=== PATIENT | male | born 1960 | race African-American/Black ===

== ENCOUNTER 2017-02-27 15:06 | Emergency (ER) | payer MEDICARE, MEDICAID ==
[~2017-02-27] VITALS: Ht 180.3 cm; Wt 113.4 kg
[2017-02-27] MEDS ORDERED: LORT5TAB PO ×2 (15:13→17:48)
[2017-02-27 18:05] VITALS: BP 131/71
== END 2017-02-27 18:06 | disposition home or self-care (01) ==
LOC: M ED 16:14
DX: M25.561 Pain in right knee (principal); Z76.0 Encounter for issue of repeat prescription; Z79.899 Other long term (current) drug therapy

== ENCOUNTER 2018-09-08 09:08 | Emergency (ER) | payer MEDICARE, MEDICAID ==
[2018-09-08 10:41] LABS: URIC ACID 7.6 MG/DL (3.5-7.2)
[2018-09-08 10:42] LABS: ANION GAP 6 MEQ/L (8-16); BLOOD UREA NITROGEN 14 MG/DL (7-18); CALCIUM LEVEL 9.1 MG/DL (8.5-10.1); CARBON DIOXIDE LEVEL 29 MEQ/L (21-32); CHLORIDE LEVEL 106 MEQ/L (98-107); CREATININE FOR GFR 1.15 MG/DL (0.70-1.30); GLOMERULAR FILTRATION RATE > 60.0 (>56); GLUCOSE, FASTING 94 MG/DL (70-100); POTASSIUM SERUM 4.3 MEQ/L (3.5-5.1); SODIUM LEVEL 141 MEQ/L (136-145)
== END 2018-09-08 11:08 | disposition home or self-care (01) ==
LOC: M ED 09:08
DX: M10.9 Gout, unspecified (principal); B35.3 Tinea pedis; R60.0 Localized edema; Z96.641 Presence of right artificial hip joint
CPT/HCPCS: 84550

== ENCOUNTER → 2019-12-17 | Outpatient (CLI) | payer OTHER ==
[~2019-12-17] MED LIST: INDO50CA91 PO; LORT5TAB PO
--- NOTE | 2019-12-18 14:46 | ECHO ---
DATE OF PROCEDURE: 12/17/2019 HEIGHT: 71 inches. WEIGHT: 245 pounds. BODY SURFACE AREA: 2.3 meters squared REFERRING PHYSICIAN: Dr. Ginger Plunkett INDICATION: Hypertension. MEASUREMENTS: 2D Measurements: RV - 4.1 cm LV - 5.3 cm Septum -1.1 cm Posterior wall - 1.1 cm Aortic root - 3.5 cm LA - 3.4 cm LVEF - 55% Doppler Measurements: AV - 1.08 meters per second LVOT - 0.91 meters per second LVOT diameter - 2.3 cm MV-E - 55, A - 66, E/A ratio 0.8 Early mitral deceleration time 285 milliseconds E prime medial - 6, A prime medial - 8, E prime lateral - 11.5 Average E/E prime ratio 6.3/PCWP 10 mmHg PV - 0.8 meters per second Pulmonary artery acceleration time - 120 milliseconds PASP - 29 mmHg IVC - 1.5 small see small. COMMENTS: Normal sinus rhythm/sinus bradycardia without intraventricular conduction disturbance. Technically challenging study in light of the patient's body habitus but diagnostically useful information was still obtained. M-mode and two-dimensional echocardiography was performed with pulsed, continuous wave, color flow and tissue Doppler studies. Normal left ventricular size and wall thickness and wall motion. Normal left atrial size with grade 1 LV diastolic dysfunction but normal estimated mean left atrial pressure (findings not outside normal limits for his age). Normal right heart chamber sizes and motion and estimated pulmonary arterial pressure. Normal IVC size and collapse against an elevated central venous pressure. Normal appearing and functioning aortic valve. Normal aortic root and ascending aortic diameters. Normal appearing and functioning mitral valvular apparatus. Normal tricuspid valve with a very mild insufficiency (physiologic). No apparent intracardiac mass or pericardial effusion.
== END ==
LOC: M CARPUL 09:43
PROVIDERS: ATTEND Internal Medicine
DX: I10 Essential (primary) hypertension (principal)

== ENCOUNTER → 2020-03-09 | Outpatient (CLI) | payer MEDICARE, OTHER | LOC: M LABSMTC 10:13 | PROVIDERS: ATTEND Family Medicine | DX: Z11.59 Encounter for screening for other viral diseases (principal); Z20.828 Contact with and (suspected) exposure to other viral communicable diseases ==

== ENCOUNTER 2022-05-29 10:56 | Emergency (ER) | payer MEDICARE, OTHER ==
[2022-05-29 15:36] VITALS: BP 198/100
== END 2022-05-29 15:40 | disposition home or self-care (01) ==
LOC: M ED 10:56 → EDBD 10:56 → M ED 15:40
DX: S20.211A Contusion of right front wall of thorax, initial encounter (principal); W18.39XA Other fall on same level, initial encounter; Y92.018 Other place in single-family (private) house as the place of occurrence of the external cause; I10 Essential (primary) hypertension; M21.371 Foot drop, right foot

== ENCOUNTER → 2022-10-14 | Outpatient (CLI) | payer OTHER ==
[~2022-10-14] MED LIST changes: +IBUP200T46 PO
== END ==
LOC: M PLAIMG 08:27
PROVIDERS: ATTEND Internal Medicine
DX: R53.1 Weakness (principal); R29.6 Repeated falls; R90.82 White matter disease, unspecified; M25.78 Osteophyte, vertebrae

== ENCOUNTER 2022-10-16 15:22 | Emergency (ER) | payer MEDICAID, MEDICARE, OTHER ==
[~2022-10-16] VITALS: Ht 180.3 cm; Wt 113.6 kg
[~2022-10-16 15:22] MED LIST changes: -IBUP200T46 PO
[2022-10-16] MEDS ORDERED: ISOVUE-370 76% 100ML VIAL As Ordered ONE (15:50)
[2022-10-16 16:11] LABS: BASO % 0.2 % (0.0-1.0); EOS % 0.7 % (0.0-3.0); HEMATOCRIT 41.9 % (42.0-52.0); LYMPH # 0.9 10^3/uL (1.5-5.0); LYMPH % 15.6 % (24.0-44.0); MEAN CORPUSCULAR HEMOGLOBIN 29.1 pg (27.0-33.0); MEAN CORPUSCULAR HGB CONC 33.4 g/dl (32.0-36.5); MEAN CORPUSCULAR VOLUME 87.1 fl (80.0-96.0); MONO # 0.4 10^3/uL (0.0-0.8); NEUTROPHILS # 4.5 10^3/uL (1.5-8.5); PLATELET COUNT, AUTOMATED 187 10^3/uL (150-450); RED BLOOD COUNT 4.81 10^6/uL (4.30-6.10)
[2022-10-16] MEDS ORDERED: PROHANCE 279.3MG/ML 5ML VIAL As Ordered ONE (19:05)
[2022-10-16] MEDS ORDERED: PROHANCE 279.3MG/ML 15ML VIAL As Ordered ONE (19:05)
[2022-10-16] MEDS ORDERED: HOME MED LIST COMPLETE! XX SCH (20:25)
[2022-10-16] MEDS ORDERED: IBUP200T46 PO (20:25)
[2022-10-16 20:42] LABS: RSV AMPLIFICATION NEGATIVE (NEGATIVE)
[2022-10-16] MEDS ORDERED: ceFAZolin SOD 2 GM in IV 1 EA IV ONE (21:35)
[2022-10-16] MEDS ORDERED: MORPHINE 4 MG/ML 1ML VIAL IV ONE (23:30)
[2022-10-16 23:47] VITALS: BP 159/90
== END 2022-10-16 23:49 | disposition short-term general hospital (02) ==
LOC: M ED 15:22 → EDBD 15:22 → M ED 23:49
DX: M46.26 Osteomyelitis of vertebra, lumbar region (principal); I10 Essential (primary) hypertension; W01.0XXA Fall on same level from slipping, tripping and stumbling without subsequent striking against object, initial encounter; Z96.641 Presence of right artificial hip joint; Z79.1 Long term (current) use of non-steroidal anti-inflammatories (NSAID)
CPT/HCPCS: 36415; 70450; 71260; 72125; 72128; 72131; 72158; 74177; 80047; 84484; 85025; 87040; 87631; 93005; 93041; 94760; 96365; 96375; 99285; A9576; J0690; J2270; Q9967

== ENCOUNTER → 2022-12-16 | Outpatient (CLI) | payer OTHER ==
[~2022-12-16] MED LIST changes: +IBUP200T46 PO
== END ==
LOC: M RAD 07:56
PROVIDERS: ATTEND Internal Medicine
DX: M48.07 Spinal stenosis, lumbosacral region (principal); R29.6 Repeated falls

== ENCOUNTER 2023-02-19 07:21 | Day surgery (SDC) | payer OTHER ==
[~2023-02-19] VITALS: Ht 177.8 cm; Wt 101.1 kg
[~2023-02-19 07:21] MED LIST changes: +FINA5TAB2 PO; +LIDOCAINE 2% 100MG/5ML SDV (FOR ANES.) As Ordered ONE; +METO200T28 PO; +NS 1,000 ML IV ONE; +fentaNYL 100 MCG/2 ML INJECTION As Ordered ONE; +propofoL 500 MG/50 ML VIAL As Ordered ONE
[2023-02-19 09:20] VITALS: BP 186/79
== END 2023-02-19 09:40 | disposition home or self-care (01) ==
LOC: M OPP 07:21
PROVIDERS: ATTEND Surgery
DX: Z12.11 Encounter for screening for malignant neoplasm of colon (principal); Z86.010 Personal history of colon polyps; D12.0 Benign neoplasm of cecum; K57.30 Diverticulosis of large intestine without perforation or abscess without bleeding; K29.70 Gastritis, unspecified, without bleeding; K30 Functional dyspepsia; I10 Essential (primary) hypertension; N40.0 Benign prostatic hyperplasia without lower urinary tract symptoms; Z79.1 Long term (current) use of non-steroidal anti-inflammatories (NSAID); Z79.899 Other long term (current) drug therapy; Z86.16 Personal history of COVID-19; Z80.1 Family history of malignant neoplasm of trachea, bronchus and lung
CPT/HCPCS: 43239; 45380; 88305; J3010

== ENCOUNTER → 2023-08-27 | Outpatient (CLI) | payer MEDICAID, MEDICARE, OTHER ==
[~2023-08-27] MED LIST changes: +ACET1TAB55 PO; +AMLO1TAB24 PO; -LIDOCAINE 2% 100MG/5ML SDV (FOR ANES.) As Ordered ONE; +MAGN400T2 PO; +MIRA1POW3 PO; -NS 1,000 ML IV ONE; +PERCOCET PO; +SENN-52 PO; -fentaNYL 100 MCG/2 ML INJECTION As Ordered ONE; -propofoL 500 MG/50 ML VIAL As Ordered ONE
== END ==
LOC: M SOG 08:14
PROVIDERS: ATTEND Orthopaedic Surgery
DX: M25.551 Pain in right hip (principal); Z96.641 Presence of right artificial hip joint

== ENCOUNTER 2024-04-08 14:27 | Emergency (ER) | payer OTHER ==
[~2024-04-08 14:27] MED LIST changes: +METO200T15 PO; -METO200T28 PO; -MIRA1POW3 PO; +MIRA33506 PO
== END 2024-04-08 14:58 | disposition left against medical advice (07) ==
LOC: M ED 14:27
DX: Z53.21 Procedure and treatment not carried out due to patient leaving prior to being seen by health care provider (principal)

== ENCOUNTER 2024-10-06 12:31 | Emergency (ER) | payer OTHER, MEDICARE ==
[~2024-10-06] VITALS: Ht 180.3 cm; Wt 124.0 kg
[2024-10-06 13:32] LABS: BASO % 0.1 % (0.0-1.0); EOS % 0.5 % (0.0-3.0); HEMATOCRIT 43.1 % (42.0-52.0); HEMOGLOBIN 14.3 g/dl (13.5-17.5); LYMPH # 0.8 10^3/uL (1.5-5.0); LYMPH % 9.2 % (24.0-44.0); MEAN CORPUSCULAR HEMOGLOBIN 29.2 pg (27.0-33.0); MEAN CORPUSCULAR HGB CONC 33.2 g/dl (32.0-36.5); MEAN CORPUSCULAR VOLUME 88.1 fl (80.0-96.0); MONO # 0.6 10^3/uL (0.0-0.8); MONO % 6.7 % (2.0-8.0); NEUTROPHILS # 7.1 10^3/uL (1.5-8.5); NEUTROPHILS % 83.1 % (36.0-66.0); PLATELET COUNT, AUTOMATED 210 10^3/uL (150-450); RED BLOOD COUNT 4.89 10^6/uL (4.30-6.10); WHITE BLOOD COUNT 8.5 10^3/uL (4.0-10.0)
[2024-10-06 13:38] LABS: BLOOD UREA NITROGEN 10 MG/DL (9-23); CALCIUM LEVEL 9.3 MG/DL (8.3-10.6); CARBON DIOXIDE LEVEL 28 MMOL/L (20-31); CHLORIDE LEVEL 108 MMOL/L (98-107); CK-MB VALUE MASS 5.6 NG/ML (<3.6); CREATININE FOR GFR 0.87 MG/DL (0.70-1.30); GLOMERULAR FILTRATION RATE > 60.0 (>49); GLUCOSE, FASTING 81 MG/DL (74-106); POTASSIUM SERUM 4.3 MMOL/L (3.5-5.1); SODIUM LEVEL 140 MMOL/L (136-145)
[2024-10-06 13:41] LABS: FREE T4 1.52 NG/DL (0.89-1.76)
[2024-10-06 13:49] LABS: CPK CREATINE PHOSPHOKINASE 613 U/L (46-171); MB/CK RELATIVE INDEX 0.91 (< OR =4)
[2024-10-06] MEDS: KETOROLAC 30 MG/ML 1ML VIAL IV ONE (14:02)
[2024-10-06 14:46] LABS: CK-MB VALUE MASS 5.2 NG/ML (<3.6); MB/CK RELATIVE INDEX 0.79 (< OR =4)
[2024-10-06] MEDS: MORPHINE 4 MG/ML 1ML VIAL IV ONE (15:13)
[2024-10-06] MEDS ORDERED: PERC5TAB12 PO (15:43)
[2024-10-06 15:45] VITALS: BP 154/76; TEMP 98.2; O2SAT 97
== END 2024-10-06 16:11 | disposition home or self-care (01) ==
LOC: M ED 12:31
DX: S09.90XA Unspecified injury of head, initial encounter (principal); M54.50 Low back pain, unspecified; W01.198A Fall on same level from slipping, tripping and stumbling with subsequent striking against other object, initial encounter; M47.896 Other spondylosis, lumbar region; M50.322 Other cervical disc degeneration at C5-C6 level; M25.78 Osteophyte, vertebrae; M51.34 Other intervertebral disc degeneration, thoracic region; I49.3 Ventricular premature depolarization; I10 Essential (primary) hypertension; Z96.641 Presence of right artificial hip joint; Z87.820 Personal history of traumatic brain injury; Z79.1 Long term (current) use of non-steroidal anti-inflammatories (NSAID); Z79.899 Other long term (current) drug therapy; Y92.009 Unspecified place in unspecified non-institutional (private) residence as the place of occurrence of the external cause; Y93.89 Activity, other specified; Y99.9 Unspecified external cause status
CPT/HCPCS: 70450; 71045; 72125; 72128; 72131; 73502; 73552; 80048; 82550; 82553; 84439; 84443; 84484; 85025; 93005; 93041; 94760; 96374; 96375; 99285; J1885

== ENCOUNTER → 2025-09-23 | Outpatient (CLI) | payer OTHER ==
[~2025-09-23] MED LIST changes: +PERC5TAB12 PO
== END ==
LOC: M SLEEP HO 09-01 11:11
PROVIDERS: ATTEND Physician Assistant
DX: G47.33 Obstructive sleep apnea (adult) (pediatric) (principal)